=== PATIENT | female | born 1950 | race Caucasian/White ===

== ENCOUNTER 2024-03-16 17:28 | Emergency (ER) | payer MEDICARE, OTHER, SELFPAY ==
[2024-03-16 17:30] VITALS: BP 150/95
--- NOTE | 2024-03-16 18:08 | ED.GENMED ---
History of Present Illness
General
Chief Complaint: DVT/Possible Blood Clot
Source: patient
Exam Limitations: none
Time Seen by Provider: 03/16/24 17:59
Nursing documentation reviewed up to this point in time: agreed with
History of Present Illness
History of Present Illness:
pt s a 73 y/o F h/o HLD, hypothyroid
R TKR [place] mid january 2024
was on baby aspirin until march 01
here with right calf pain/swelling x 3 days
recent segmental driving from [place] to [place] 4 days ago and then to [place] from [place] and then back to [place]
at most spending 3 hours in the car
she noticed the swelling on the first drive 4 days ago and it has been persistent
pain is posterior calf and behind knee
normal incision site
no cp, sob
fhx of DVT/PE
pt took full dose asa x 2 yesterday and x 2 today
Past History
Past History
ED Past Medical History: GERD, Hypercholesterolemia and Other (leaky valves)
Social History
Tobacco: Non-smoker
Alcohol: None
Drug: None
Personal:
Living: with family
Review of Systems
Review of Systems
Allergies reviewed?: Yes
All Other Systems: Not applicable
Phy Exam
Physical Exam
Physical Exam:
GENERAL: Alert , in no apparent distress
EYE: pupils equal and reactive
NECK: Supple
ENT: o/p clr, mmm.
CARDIAC: Regular rate and rhythm .
LUNGS: Clear breath sounds bilaterally, no acute respiratory distress, no wheezes/rales/rhonchi
ABDOMEN: Soft, without focal tenderness, no r/g, no cvat, normal bowel sounds
NEUROLOGICAL: Alert and oriented, no focal neuro deficits
SKIN: Warm and dry, skin intact.
incision site well appearing, no drainage, no erythema
MUSCULOSKELETAL: mild swelling right knee
no effusion
posterior kne sligthly tender swollen
tenderness prox calf
no varicosities or cords
normal pulse
full rom fo the knee
PSYCH: Normal and appropriate interaction.
Course
Orders/Labs/Results
Orders:
Orders
03/16/24 18:06
Venous Doppler Lwr Ext Rt [US Periph Venous LOWER Ext RT] Urgent
Comment:
Reason For Exam: right pos knee pain; eval dvt vs. bakers cyst
Vital Signs
Blood pressure: 122/78
Initial and Last Documented VS:
Initial Vital Signs
Temp Pulse Resp BP Pulse Ox
98.1 F 76 18 150/95 99
03/16/24 17:30 03/16/24 17:30 03/16/24 17:30 03/16/24 17:30 03/16/24 17:30
Last Documented Vital Signs
Temp Pulse Resp BP Pulse Ox
98.1 F 76 18 150/95 99
03/16/24 17:30 03/16/24 17:30 03/16/24 17:30 03/16/24 17:30 03/16/24 17:30
MDM/Problems Addressed
Differential Diagnosis Includes:
DVT, SEROMA, BAKERS CYST, EDEMA
MDM/Problems Addressed:
73 Y/O F OOT
6 weeks post R TKR
driving a lot in the car
also went to the gym recently again for first time
here with pain/swelling to RLE, most pain prox calf
no numbness/tingling/weakness, no cp, sob, nof ever, no skin changes
right knee down to ankle swollen mild to mod
tender prox calf
able to range knee well
no systemic signs of ionfection
us neg for dvt but large 12 cm collectino probably post op seroma vs hematoma
mica wrap
nsaids
warm compresses
f/u ortho at home
bp improved
*Critical Care Note
Total Time (30-74mins, 75-104mins- exclusive of procedures): Not Applicable
ED Attending Note
-
Portions of this chart may have been created with voice recognition software.� Occasional wrong word or��sound alike� substitutions may have occurred due to the inherent limitations of voice recognition software.
Discharge Plan
Departure
Patient Disposition: Home (Routine Discharge)
Date of Disposition: 03/16/24
Time of Disposition: 19:11
Patient with high blood pressure during this ER visit?: Yes
Condition: Fair
Covid-19: Not Applicable
Discharge Problem:
Calf swelling, Postoperative seroma
Instructions: Swelling, Seroma
Referrals:
NONE,* [Family Provider] -
Activity Restrictions/Additional Instructions:
YOUR ULTRASOUND SHOWS NO DEEP VEIN CLOT
THIS SWELLING COULD BE A SEROMA WHICH IS A FLUID COLLECTION IN YOUR CALF FROM YOUR SURGERY
YOU SHOULD FOLLOW UP WITH YOUR ORTHOPEDIST NEXT WEEK
IF YOU DEVELOP REDNESS, WARMTH, FEVER, SEVERE PAIN THEN YOU NEED TO BE SEEN AGAIN
Discharge Date and Time
Print Language: ITALIAN
== END 2024-03-16 19:59 | disposition home or self-care (01) ==
LOC: EMR 17:28
PROVIDERS: EMERGENCY PHYSICIAN Student in an Organized Health Care Education/Training Program
DX: R22.41 Localized swelling, mass and lump, right lower limb (principal); L76.34 Postprocedural seroma of skin and subcutaneous tissue following other procedure; Y83.9 Surgical procedure, unspecified as the cause of abnormal reaction of the patient, or of later complication, without mention of misadventure at the time of the procedure; R03.0 Elevated blood-pressure reading, without diagnosis of hypertension; E03.9 Hypothyroidism, unspecified; E78.00 Pure hypercholesterolemia, unspecified
CPT/HCPCS: 99284; 93971